=== PATIENT | female | born 1980 | race Caucasian/White ===

== ENCOUNTER 2020-11-30 18:42 | Emergency (ER) | payer OTHER ==
[~2020-11-30] VITALS: Ht 154.9 cm; Wt 85.0 kg
[2020-11-30 19:38] VITALS: BP 124/80
--- NOTE | 2020-11-30 21:09 | NUR ---
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
--- NOTE | 2020-11-30 21:25 | NUR ---
LEFT KNEE PAIN S/P TRIP AND FALL TODAY. DENIES HITTING HEAD. UNABLE TO BEAR WEIGHT ON LEFT LEG.
--- NOTE | 2020-11-30 21:41 | NUR ---
ERPA LONG AT BEDSIDE FOR EVAL
--- NOTE | 2020-11-30 22:02 | NUR ---
ora wrap placed, pt educated on dc instructions, verbalized undertsanding. ambulatory to dc desk with steyda gait.
== END 2020-11-30 22:04 | disposition home or self-care (01) ==
LOC: ED 21:22
DX: M25.562 Pain in left knee (principal); W01.0XXA Fall on same level from slipping, tripping and stumbling without subsequent striking against object, initial encounter; Y93.89 Activity, other specified; Y92.89 Other specified places as the place of occurrence of the external cause; Y99.8 Other external cause status
CPT/HCPCS: 99283